=== PATIENT | female | born 1990 | race Caucasian/White ===

== ENCOUNTER → 2016-09-17 | Outpatient (CLI) | payer OTHER ==
[~2016-09-17] MED LIST: BCPILLS PO
[2016-09-21 23:54] LABS: CHLAMYDIA TRACH RNA*** NOT DETECTED (NOT DETECTED); GC (NEIS GONORRHOEAE)RNA** NOT DETECTED (NOT DETECTED)
== END ==
LOC: C.LABSPEC 17:54
PROVIDERS: ATTEND Physician Assistant
DX: Z01.419 Encounter for gynecological examination (general) (routine) without abnormal findings (principal)

== ENCOUNTER → 2016-09-17 | Outpatient (CLI) | payer OTHER | END | disposition home or self-care (01) | LOC: C.PAPS 09:34 | PROVIDERS: ATTEND Physician Assistant | DX: Z12.4 Encounter for screening for malignant neoplasm of cervix (principal); R87.616 Satisfactory cervical smear but lacking transformation zone; Z87.42 Personal history of other diseases of the female genital tract ==

== ENCOUNTER 2020-05-27 04:58 | Inpatient (IN) ==
--- NOTE | 2020-05-25 14:02 | History & Physical Report ---
Date of Service May 25, 2020 Assessment & Plan (1) Previous delivery affecting , antepartum: Admission and Anticipated Discharge Date Admission Date: IUP at 39+ weeks in multiparous female with history of demise at 3 weeks of age with omphalocele and had a repeat with second . She presents for repeat but declines tubal at this time. the FOB is new and they are hoping to have one more child together. The procedure and it's risks were reviewed at length with the patient and her and all of their questions were answered to their satisfaction and are ready to proceed. History of Present Illness Primary Care Provider: NO PCP Patient is a 29 yo white female who presents at 39 weeks gestation for repeat section. First was done for infant with omphalocele that at 3 weeks of age. Second section was done as scheduled repeat. otherwise has been uncomplicated. GBS (+) First section she had no issues with the spinal except for mild nausea. Second section, she had SOB after the first attempt at the spinal was not effective. She had a second spinal attempt after which she had difficulty knowing she was breathing, however, she did not have a high spinal requiring respiratory assistance. Allergies Allergy/AdvReac Type Severity Reaction Status Date / Time telithromycin Allergy Intermediate HIVES Verified 05/22/20 09:43 Home Medications Medication Instructions Recorded Confirmed Type prenat.vits,misti,[id number] 1 tab PO QAM 10/16/19 05/22/20 History breast pump #1 ea 03/21/20 05/22/20 Rx calcium carbonate [Tums] 200 mg PO DAILY PRN 03/23/20 05/22/20 History Patient History Medical History History of anesthesia reaction per pt in 2013 with last she was "very numb and felt like I couldn't breathe with last spinal" History of cervical cancer per pt she was diagnosed 2018--sx History of gout Nausea and vomiting after administration of anesthetic agent Surgical History H/O section x2--2011, 2013 History of hysteroscopy for cervical cancer removal History of tonsillectomy and adenoidectomy History of tooth extraction Hx of LASIK S/P thyroid biopsy benign [place] teeth extracted Family History Grandfather (Maternal) Clotting disorder Kidney disease Grandfather (Paternal) Clotting disorder Grandmother (Maternal) Clotting disorder Mother Endometriosis Aunt Multiple sclerosis Daughter Omphalocele Other No family history of adverse response to anesthesia Social History Smoking Status: Never smoker Second Hand Exposure: No; Hx Alcohol Use: No (none during ) Hx Substance Use: No Preferred Language: Liberian Communication Ability: Effective Roller Picker Required: No Beliefs That Will Affect Care: None marital status: Single marital status details: Bhavik (29) [phone] Current Living Situation: Significant Other Current Living Situation Comment: lives with fiancee and daughter, 3 dogs. current occupational status: employed current occupation: buying agent Feels Safe at Home: Yes Assistive Devices: None Review of Systems All systems reviewed & are unremarkable except as noted in HPI & below Physical Exam Constitutional: WD/WN, vitals as above Respiratory: normal respiratory effort, lungs clear to auscultation Cardiovascular: RRR, no murmur, no edema Gastrointestinal (Abdomen): normal bowel sounds, soft, nontender, no hepatosplenomegaly Psychiatric: A+Ox3, euthymic affect Genitourinary: OB Exam Abdomen: + fundal height (39), + heart tones (145), + vertex and + estimated weight (7-8 pounds) cervix exam declined Coding Level of Care Code None Diagnoses Previous delivery affecting , antepartum O34.219
[2020-05-27] MEDS ORDERED: LACTATED RINGER'S 1,000 ML IV SCH ×2 (05:15→09:15)
[2020-05-27] MEDS ORDERED: CITRIC ACID/SODIUM CITRATE 15 ML UDC PO SCH (06:00)
[2020-05-27 06:02] LABS: Basophils # (auto) 0.02 K/uL (0-0.2); Basophils % (auto) 0.2 %; Eosinophils # (auto) 0.17 K/uL (0-0.5); Eosinophils % (auto) 1.5 %; Hematocrit (blood only) 33.3 % (37-47); Immature Granulocytes # (auto) 0.03 K/uL (0.00-0.02); Immature Granulocytes % (auto) 0.3 %; Lymphocytes # (auto) 2.73 K/uL (1.2-3.4); Lymphocytes % (auto) 24.6 %; Mean Corpuscular Hemoglobin 29.3 pg (25-34); Mean Corpuscular Volume 88.8 fL (80-100); Mean Platelet Volume 10.9 fL (7.4-10.4); Monocytes # (auto) 1.21 K/uL (0.11-0.59); Monocytes % (auto) 10.9 %; Neutrophils # (auto) 6.95 K/uL (1.4-6.5); Neutrophils % (auto) 62.5 %; Platelet Count 149 K/uL (130-400); RDW Coefficient of Variation 14.2 % (11.5-14.5); RDW Standard Deviation 46.5 fL (36.4-46.3); Red Blood Count 3.75 M/uL (4.2-5.4); White Blood Count 11.11 K/uL (4.8-10.8)
[2020-05-27] MEDS ORDERED: ERYTHROMYCIN OP OINT 1 GM PKT ONE (07:17)
--- NOTE | 2020-05-27 07:42 | History & Physical Bridge Note ---
Date of Service May 27, 2020 History & Physical Bridge Note I have examined the patient, reviewed the History & Physical and in the interval since the performance of the History & Physical I have noted the following changes of clinical significance: no changes noted
--- NOTE | 2020-05-27 07:55 | Anesthesiology Consultation ---
Date of Service May 27, 2020 Assessment & Plan (1) Encounter for pre-operative examination: Chart Review Chart Review: Acceptable Risk for Surgery and Patient NOT seen in Pre Admission Testing Consults Requested none ASA ASA2 Proposed Anesthesia Anesthesia Type: Spinal Risk / Benefits Reviewed With: PT / POA / Parent / Guardian, Accepts Plan and Informed Consent Obtained History Surgery Operation Date: 05/27/20 07:30 Proposed Procedures p Section in LD - Pricila Ward MD, FACOG Height/Weight Height: 5 ft 4 in Weight: 98.792 kg Allergies Allergy/AdvReac Type Severity Reaction Status Date / Time telithromycin Allergy Intermediate HIVES Verified 05/27/20 05:25 Medications Home Medications Medication Instructions Recorded Confirmed Last Taken prenat.vits,misti,[id number] 1 tab PO QAM 10/16/19 05/27/20 05/26/20 08:00 breast pump #1 ea 03/21/20 05/22/20 Unknown calcium carbonate [Tums] 200 mg PO DAILY PRN 03/23/20 05/27/20 05/26/20 08:00 NPO Date Last Intake of Fluids: 05/26/20 Time Last Intake of Fluids: 23:00 Date Last Intake of Solids: 05/26/20 Time Last Intake of Solids: 19:00 Past Medical History Medical History History of anesthesia reaction per pt in 2013 with last she was "very numb and felt like I couldn't breathe with last spinal" History of cervical cancer per pt she was diagnosed 2018--sx History of gout Nausea and vomiting after administration of anesthetic agent Exercise / Class Metabolic Activity II 4-5 Yardwork/Stairs/Walk up hill Negative for chest pain or shortness of breath. Past Family History Family History Grandfather (Maternal) Clotting disorder Kidney disease Grandfather (Paternal) Clotting disorder Grandmother (Maternal) Clotting disorder Mother Endometriosis Aunt Multiple sclerosis Daughter Omphalocele Other No family history of adverse response to anesthesia Past Surgical History Surgical History H/O section x2--2013 History of hysteroscopy for cervical cancer removal History of tonsillectomy and adenoidectomy History of tooth extraction Hx of LASIK S/P thyroid biopsy benign [place] teeth extracted Past Anesthesia History No Hx of Anesthesia Complications History of PONV History of PONV Social History Smoking Status: Never smoker Do You Dip or Chew Tobacco: No Hx Alcohol Use: Yes alcohol intake frequency: a few times a month Hx Substance Use: No substance use type: does not use Review of Systems Patient denies numbness, tingling or weakness in lower extremities. Patient denies history of abnormal bleeding or bleeding disorder. Patient denies active use of anticoagulants other than low dose aspirin. Physical Exam Vital Signs Last Vital Signs Temp 36.8 C 05/27/20 05:18 Pulse 87 05/27/20 05:18 Resp 18 05/27/20 05:18 BP 126/82 05/27/20 05:18 Constitutional not obese (gravid uterus) ENMT Mouth: no TMJ abnormality and oral opening not small Thyromental Distance: > or= 3.5 Finger Breadths Mallampati Class: II Neck normal visual inspection; neck extension not limited Respiratory normal respiratory effort Auscultation: lungs clear to auscultation bilaterally Cardiovascular Rate/Rhythm: regular rate and regular rhythm Heart Sounds: no murmur Neurologic moves all extremities Motor/Sensory: + sensory deficit (hands b/l) Psychiatric Orientation: alert and oriented x 3 Testing Laboratory Results 05/27/20 05:50 Blood Type A Positive 05/27/20 05:50 Antibody Screen NEGATIVE 05/27/20 05:50
[2020-05-27] MEDS ORDERED: ONDANSETRON INJ 2 MG/ML 2 ML VIAL ONE (08:01)
[2020-05-27] MEDS ORDERED: OXYTOCIN 10 UNITS/ML VIAL ONE (08:01)
[2020-05-27] MEDS ORDERED: fentaNYL citrate 100 MCG/2 ML VIAL ONE (08:02)
[2020-05-27] MEDS ORDERED: MoRPHine SULFATE PF 1 MG/ML 10 ML AMP/VIAL ONE (08:02)
[2020-05-27] MEDS ORDERED: GLYCOPYRROLATE 0.2 MG/ML VIAL ONE (08:34)
[2020-05-27] MEDS ORDERED: ePHEDrine sulfate 50 MG/ML SYR ONE (08:39)
[2020-05-27] MEDS ORDERED: PHENYLEPHRINE 100MCG/ML 5ML SYR ONE (08:39)
[2020-05-27] MEDS ORDERED: SODIUM CHLORIDE 0.9% INJ 10 ML VIAL ONE (08:53)
[2020-05-27] MEDS ORDERED: KETOROLAC 30 MG/ML VIAL ONE (09:03)
[2020-05-27] MEDS ORDERED: MoRPHine SULFATE PF 1 MG/ML 10 ML AMP/VIAL INT SPINAL ONE (09:06)
[2020-05-27] MEDS ORDERED: ePHEDrine sulfate 50 MG/ML AMP IV PRN (09:06)
[2020-05-27] MEDS ORDERED: NALOXONE HCL 0.08 MG in SYRINGE 1.8 ML IV PRN (09:06)
[2020-05-27] MEDS ORDERED: NALOXONE HCL 1 MG in SODIUM CHLORIDE 0.9% 1000ML 1,000 ML IV PRN (09:06)
[2020-05-27] MEDS ORDERED: diphenhydrAMINE 50 MG/ML VIAL IV PRN (09:06)
[2020-05-27] MEDS ORDERED: ONDANSETRON INJ 2 MG/ML 2 ML VIAL IV PRN (09:06)
[2020-05-27] MEDS ORDERED: LACTATED RINGER'S 500 ML IV PRN (09:06)
[2020-05-27] MEDS ORDERED: ACETAMINOPHEN 1000 MG/100 ML IV IV PRN (09:06)
[2020-05-27] MEDS ORDERED: HYDROmorphone INJ 0.5 MG/0.5 ML SYR IV PRN (09:06)
[2020-05-27] MEDS ORDERED: NALOXONE HCL 0.4 MG/1 ML VIAL/CARP IV PRN (09:06)
[2020-05-27] MEDS ORDERED: diphenhydrAMINE 50 MG/ML VIAL ONE (09:12)
[2020-05-27] MEDS ORDERED: SENNA 8.6 MG TAB PO PRN (09:14)
[2020-05-27] MEDS ORDERED: BENZOCAINE 20% AER SPR 82.5 GM CAN EXT PRN (09:14)
[2020-05-27] MEDS ORDERED: MAGNESIUM HYDROXIDE SUSP 30 ML UDC PO PRN (09:14)
[2020-05-27] MEDS ORDERED: SUPERCREAM 0.870% 15 GM JAR EXT PRN (09:14)
[2020-05-27] MEDS ORDERED: HYDROCORTISONE ACETATE 25 MG SUPP PR PRN (09:14)
[2020-05-27] MEDS ORDERED: DIPHTHERIA/TETANUS/PERTUSSIS 0.5 ML SYR/VIAL IM ONE (09:14)
[2020-05-27] MEDS ORDERED: SODIUM CHLORIDE 0.9% 1000ML 1,000 ML IV SCH (09:15)
[2020-05-27] MEDS ORDERED: NO NARCOTICS OR SEDATIVES SCH (09:15)
--- NOTE | 2020-05-27 09:19 | Post Operative Brief Note ---
PG Immediate Post Op with CF Date of Surgery May 27, 2020 Pre & Post Diagnosis Operation Date: 05/27/20 07:30 Pre-Op Diagnosis: Repeat section Post-Op Diagnosis: Repeat section I identified the patient and participated in the time-out.: Yes Procedure Operation Date: 05/27/20 07:30 Actual Procedures p Section in LD live male child at 0836 - Pricila Ward MD, FACOG Surgeon Pricila Ward MD, FACOG Industrial Maintenance Technician Saloni Lauren MD Estimated Blood Loss 500 Findings Consistent with Post-Op Diagnosis Specimens Specimen Description: 1. Placenta, HOLD Drains Mcconnell Catheter
[2020-05-27] MEDS: OXYTOCIN 20 UNITS in LACTATED RINGER'S 1,000 ML IV SCH ×2 (09:42→17:47)
--- NOTE | 2020-05-27 10:06 | Operative Report ---
PG Post Operative Report Pre & Post Diagnosis Operation Date: 05/27/20 07:30 Pre-Op Diagnosis: Repeat section Post-Op Diagnosis: Repeat section I identified the patient and participated in the time-out.: Yes Procedure Operation Date: 05/27/20 07:30 Actual Procedures p Section in LD live male child at 0836 - Pricila Ward MD, FACOG Surgeon Pricila Ward MD, FACOG Ground Crewman Mission Support Saloni Lauren MD Estimated Blood Loss 500 Findings Consistent with Post-Op Diagnosis Specimens none Description of Procedure repeat low transverse section I attest to the content of the Intraoperative Record and any orders documented therein. Any exceptions are noted below.
--- NOTE | 2020-05-27 10:11 | Operative Report ---
PG Post Operative Report Pre & Post Diagnosis Operation Date: 05/27/20 07:30 Pre-Op Diagnosis: Repeat low transverse section prior low transverse section X2 Post-Op Diagnosis: Repeat low transverse section I identified the patient and participated in the time-out.: Yes Procedure Operation Date: 05/27/20 07:30 Actual Procedures low transverse Section in LD live male child at 0836 - Pricila Rob MD, FACOG Surgeon Pricila Ward MD, FACOG Director Global Medical Affairs Saloni Lauren MD Estimated Blood Loss 500 Findings Consistent with Post-Op Diagnosis The uterus was noted to be gravid and consistent with a term in size. Bilateral fallopian tubes and ovaries were grossly normal. The lower uterine segment was noted to be thin but intact. Specimens placenta Drains Mcconnell to straight drainage Anesthesia Type Spinal Complications none Disposition Accompanied Patient To Recovery: Yes Disposition: L&D Indications Patient is a 29-year-old G3 para 2-0-0-1 who presents at 39+ weeks for repeat section. First section was done because the had an omphalocele. That at 3 weeks of age. She had a repeat section with her last delivery without complications. She is now scheduled for repeat section but declines tubal ligation as this is a new partner and they may want to have one more child together. She understands the risk of the procedure and is willing to proceed. Description of Procedure After the patient received adequate subarachnoid block, she was prepped and draped in the usual sterile fashion. A low transverse skin incision was made through her prior scar and carried to the fascia with the same scalpel. The fascial incision was then extended with Alvarenga scissors. The edges were then grasped with Natalia clamps and the underlying rectus muscles bluntly and sharply dissected off of the overlying fascia. The rectus muscles were bluntly divided, and during this process the peritoneum was entered bluntly. The bladder blade was then placed in the lower uterine segment was noted to be thin but intact. The bladder was taken down off the anterior surface of the uterus with Metzenbaum scissors and placed behind the bladder blade. The lower uterine segment was entered with a scalpel and extended transversely. Membranes were ruptured for clear fluid. The was in the vertex presentation and because of scarring in the lower uterine segment, the vacuum was used to bring the vertex gently through the incision accompanied by moderate fundal pressure. After the vertex was delivered the rest of the infant delivered easily. The cord was clamped and cut. The infant was vigorous and moving all 4 limbs and was handed off to Dr. Barlow who was attendance as sales engagement executive. The placenta was then manually removed and the uterus exteriorized and covered a clean lap sponge. The uterus cavity was explored and found to be free of any placental tissue however some retained membranes were removed using a ring forcep. The uterus was then closed in 2 layers with 0 Monocryl suture in a running locking imbricating fashion. Bleeding along the inner midportion of the incision was secured with a [id number] stitch of 0 Monocryl. At this point the incision had excellent hemostasis. The posterior cul-de-sac was irrigated with normal saline,. The uterine incision was then was examined once more found to have excellent hemostasis. Uterus placed back in the abdominal cavity the gutters were explored and were free of any fluid or clot. The fimbriated end of the right fallopian tube was bleeding and this was secured with the Bovie. The uterine incision continued to have excellent hemostasis. The rectus muscle were brought together in the midline with individual stitches of 0 Monocryl. The fascia was then closed in a running fashion with 0 Vicryl. After irrigating the adipose layer the skin edges were reapproximated using a subcuticular stitch of 3-0 Vicryl. Urine was clear at the end of the case. Mother and were doing well upon arrival in labor and delivery. I attest to the content of the Intraoperative Record and any orders documented therein. Any exceptions are noted below. OB Procedure charges OB Charges 57794 C/S
--- NOTE | 2020-05-27 12:04 | Anesthesiology Progress Note ---
Date of Service May 27, 2020 Anesthesia Post Procedure Vital Signs Vital Signs: Temp Pulse Resp BP Pulse Ox 05/27/20 11:24 89 100 05/27/20 11:23 36.9 C 83 113/58 L 05/27/20 11:19 56 L 100 05/27/20 11:14 67 100 05/27/20 11:13 92 H 113/57 L 05/27/20 11:09 89 100 05/27/20 11:04 94 H 100 05/27/20 11:03 97 H 114/70 05/27/20 10:59 67 100 05/27/20 10:54 109 H 100 05/27/20 10:53 109 H 18 111/70 05/27/20 10:49 73 100 05/27/20 10:44 71 100 05/27/20 10:43 80 110/61 05/27/20 10:39 85 100 05/27/20 10:34 100 H 100 05/27/20 10:33 92 H 111/58 L 05/27/20 10:29 89 99 05/27/20 10:24 93 H 99 05/27/20 10:23 18 05/27/20 10:19 79 98 05/27/20 10:14 103 H 97 05/27/20 10:13 18 05/27/20 10:09 81 97 05/27/20 10:03 93 H 18 119/76 100 05/27/20 09:58 70 99 05/27/20 09:53 72 18 100 05/27/20 09:52 85 113/77 05/27/20 09:48 100 H 100 05/27/20 09:43 90 18 123/76 100 05/27/20 09:38 101 H 99 05/27/20 09:33 94 H 16 112/64 99 05/27/20 09:28 97 H 98 05/27/20 09:23 36.5 C 113 H 18 111/75 99 05/27/20 08:23 36.5 C 16 05/27/20 07:46 18 05/27/20 05:18 36.8 C 87 18 126/82 Transfer of Care Handoff Completed per policy Notes Mental Status: alert / awake / arousable and participated in evaluation Nausea / Vomiting: adequately controlled Pain: adequately controlled Airway Patency, RR, SpO2: stable & adequate BP & HR: stable & adequate Hydration State: stable & adequate Neuraxial Anesthesia: was administered and sensory block is resolving Anesthetic Complications: no major complications apparent and Pt Satisfied with anesthetic care
[2020-05-27] MEDS ORDERED: LACTATED RINGER'S 500 ML IV ONE (12:19)
[2020-05-27] MEDS: SIMETHICONE 80 MG CHEW PO SCH ×3 (13:18→20:31)
[2020-05-27] MEDS: KETOROLAC 30 MG/ML VIAL IV PRN ×2 (16:44→23:24)
[2020-05-27] MEDS: DOCUSATE SODIUM 100 MG CAP PO SCH (20:31)
[2020-05-28] MEDS ORDERED: DC INTRASPINAL MORPHINE ONE (03:06)
[2020-05-28] MEDS ORDERED: diphenhydrAMINE 50 MG/ML VIAL IV PRN (03:06)
[2020-05-28] MEDS ORDERED: PROMETHAZINE HCL 25 MG in SODIUM CHLORIDE 0.9% 50 ML IV PRN (03:06)
[2020-05-28] MEDS ORDERED: ONDANSETRON INJ 2 MG/ML 2 ML VIAL IV PRN (03:06)
[2020-05-28] MEDS ORDERED: ZOLPIDEM TARTRATE 5 MG TAB PO PRN (03:06)
[2020-05-28] MEDS ORDERED: MEPERIDINE HCL 50 MG/ML CARP IV PRN (03:06)
[2020-05-28] MEDS ORDERED: KETOROLAC 30 MG/ML VIAL IV PRN (03:06)
[2020-05-28] MEDS: oxyCODONE/ACETAMINOPHEN 5mg/325mg TAB PO PRN ×5 (04:33→20:57)
[2020-05-28] MEDS: IBUPROFEN 600 MG TAB PO PRN ×5 (04:33→20:57)
[2020-05-28 07:27] LABS: Basophils # (auto) 0.02 K/uL (0-0.2); Basophils % (auto) 0.2 %; Eosinophils # (auto) 0.15 K/uL (0-0.5); Eosinophils % (auto) 1.2 %; Hematocrit (blood only) 33.8 % (37-47); Immature Granulocytes # (auto) 0.03 K/uL (0.00-0.02); Immature Granulocytes % (auto) 0.2 %; Lymphocytes # (auto) 2.19 K/uL (1.2-3.4); Lymphocytes % (auto) 16.8 %; Mean Corpuscular Hemoglobin 28.9 pg (25-34); Mean Corpuscular Hgb Conc 32.5 g/dL (32-36); Mean Corpuscular Volume 88.9 fL (80-100); Mean Platelet Volume 11.2 fL (7.4-10.4); Monocytes % (auto) 10.8 %; Neutrophils # (auto) 9.23 K/uL (1.4-6.5); Neutrophils % (auto) 70.8 %; Platelet Count 168 K/uL (130-400); RDW Coefficient of Variation 14.4 % (11.5-14.5); RDW Standard Deviation 46.4 fL (36.4-46.3); White Blood Count 13.02 K/uL (4.8-10.8)
[2020-05-28] MEDS: SIMETHICONE 80 MG CHEW PO SCH ×4 (07:40→20:34)
[2020-05-28] MEDS: PRENATAL VITAMIN 1 TAB PO SCH (07:40)
[2020-05-28] MEDS: DOCUSATE SODIUM 100 MG CAP PO SCH ×2 (07:40→20:35)
[2020-05-28] MEDS: FERROUS SULFATE 325 MG TAB PO SCH (07:40)
--- NOTE | 2020-05-28 07:45 | Obstetrical Progress Note ---
Date of Service May 28, 2020 Assessment & Plan (1) care following delivery: stable, doing well, routine care. , rh pos, ri. Day #:: 1 Subjective Ambulation: ambulating normally Voiding: no voiding problems Passing Gas:: Yes Diet Tolerance:: clear liquids Lochia:: Small Feeding Type:: breast feeding denies pain issues. , baby doing better with latch this am. Physical Exam Constitutional WD/WN, vitals as above Respiratory normal respiratory effort, lungs clear to auscultation Cardiovascular Rate/Rhythm: regular rate and regular rhythm Gastrointestinal (Abdomen) Inspection/Auscultation: abdomen normal to inspection Percussion/Palpation: abdomen soft Fundus firm at u, nt. incision c/d/i Musculoskeletal nt calves no edema Neurologic grossly normal Psychiatric A+Ox3, euthymic affect Results & Data ([facility]) Vital Signs (Past 12 Hours) Vital Signs Temp Pulse Resp BP Pulse Ox 05/28/20 04:10 98.4 F 90 16 117/84 98 05/28/20 02:20 16 98 05/28/20 01:45 16 97 05/28/20 00:30 16 95 05/27/20 23:15 98.6 F 85 16 107/72 98 05/27/20 22:50 16 97 05/27/20 21:30 16 95 05/27/20 20:30 16 98 05/27/20 19:50 98.8 F 84 16 114/80 97
--- NOTE | 2020-05-28 09:48 | Anesthesiology Progress Note ---
Date of Service May 28, 2020 Anesthesia Post Procedure Vital Signs Vital Signs: Temp Pulse Pulse Resp BP BP Pulse Ox 05/28/20 04:10 36.9 C 90 16 117/84 98 05/28/20 02:20 16 98 05/28/20 01:45 16 97 05/28/20 00:30 16 95 05/27/20 23:15 37.0 C 85 16 107/72 98 05/27/20 22:50 16 97 05/27/20 21:30 16 95 05/27/20 20:30 16 98 05/27/20 19:50 37.1 C 84 16 114/80 97 05/27/20 18:43 20 100 05/27/20 17:30 20 98 05/27/20 16:30 20 98 05/27/20 16:20 36.8 C 90 20 109/70 98 05/27/20 15:30 20 100 05/27/20 14:30 20 97 05/27/20 13:33 20 98 05/27/20 12:30 20 97 05/27/20 11:32 36.9 C 89 20 103/66 100 05/27/20 11:24 89 100 05/27/20 11:23 36.9 C 83 113/58 L 05/27/20 11:19 56 L 100 05/27/20 11:14 67 100 05/27/20 11:13 92 H 113/57 L 05/27/20 11:09 89 100 05/27/20 11:04 94 H 100 05/27/20 11:03 97 H 114/70 05/27/20 10:59 67 100 05/27/20 10:54 109 H 100 05/27/20 10:53 109 H 18 111/70 05/27/20 10:49 73 100 05/27/20 10:44 71 100 05/27/20 10:43 80 110/61 05/27/20 10:39 85 100 05/27/20 10:34 100 H 100 05/27/20 10:33 92 H 111/58 L 05/27/20 10:29 89 99 05/27/20 10:24 93 H 99 05/27/20 10:23 18 05/27/20 10:19 79 98 05/27/20 10:14 103 H 97 05/27/20 10:13 18 05/27/20 10:09 81 97 05/27/20 10:03 93 H 18 119/76 100 05/27/20 09:58 70 99 05/27/20 09:53 72 18 100 05/27/20 09:52 85 113/77 Pain Intensity Abdomen: Pain Intensity: 4 Transfer of Care Handoff Completed per policy Notes Mental Status: alert / awake / arousable Patient Amnestic to Procedure: Yes Nausea / Vomiting: adequately controlled Pain: adequately controlled Airway Patency, RR, SpO2: stable & adequate BP & HR: stable & adequate Hydration State: stable & adequate Neuraxial Anesthesia: was administered and sensory block resolved Anesthetic Complications: no major complications apparent and Pt Satisfied with anesthetic care
[2020-05-28] MEDS: diphenhydrAMINE Capsule 25 MG CAP PO PRN ×2 (12:44→20:58)
[2020-05-28] MEDS ORDERED: bisacodyL 5 MG TABEC PO SCH (20:00)
[2020-05-29] MEDS: IBUPROFEN 600 MG TAB PO PRN ×3 (00:52→12:14)
[2020-05-29] MEDS: oxyCODONE/ACETAMINOPHEN 5mg/325mg TAB PO PRN ×3 (00:52→12:14)
--- NOTE | 2020-05-29 05:39 | Obstetrical Progress Note ---
Date of Service May 29, 2020 Assessment & Plan (1) care following delivery: S/p Elective Repeat CS Day 2 - Feels well today. Eating well, voiding well, ambulating well. - Pain well-controlled with ibuprofen 600mg Q4H PRN. - Vital signs reviewed and WNL. - Hemoglobin reviewed. 11.0 --> 11.0 --> 10.9 (today). - Blood Type: A+, antibody negative, GBS positive (s/p Ancef), Rubella Immune, COVID-19 negative - Continue routine post-operative care: encourage ambulation, monitor and control pain with Motrin PRN, continue regular OB diet, monitor lochia - Encourage breast feeding. - Pt counselled on discharge instructions - After discharge, will have 6-wk follow-up with Dr. Rob Admission and Anticipated Discharge Date Admission Date: May 27, 2020 Supervising Physician Co-Signing Physician Notes Patient seen and evaluated and agree with the above findings and plan. Stable for discharge today per patient request Subjective HPI Jessie Kellogg is a 29 y/o female who is POD #2 following elective repeat delivery at 39w1d. She reports feeling well overall this morning. mild abdominal cramping and 2-7/10 pain well managed on analgesics. Voiding well. Tolerating meals overnight without difficulty. Patient has been able to ambulate some. passing gas and no bowel movement. Has persistent lochia with no improvement this morning. Currently and supplementing with formula via bottle. Review of Systems Review of Systems: ROS Denies fever or chills. Denies shortness of breath or cough. Denies chest pain. Denies breast pain. Denies dysuria. Denies leg pain or leg swelling. Denies headache or changes in vision. Physical Exam Physical Exam: PE General: Alert, oriented. No acute distress. Cardiac: Regular rate and rhythm. No murmurs. Respiratory: Clear to auscultation bilaterally a/p, no wheezes/rales/rhonchi. No increased work of breathing. Symmetrical chest rise. No respiratory distress. Abdomen: Soft, nontender, nondistended. Bowel sounds present. Uterus: Uterine fundus firm, palpable at umbilicus. Surgical scar clean and healing well. Lower Extremities: No lower extremity edema or swelling. No deep calf pain. Otoniel's negative bilaterally. Results & Data ([facility]) Vital Signs (Past 12 Hours) Vital Signs Temp Pulse Resp BP Pulse Ox 05/29/20 00:55 36.7 C 78 18 125/85 98 05/28/20 20:30 36.5 C 87 18 118/87 100 Resident Activity Tracking Resident Involvement: Resident Care Provided Care Provided: Adult Hospital Medicine
[2020-05-29 06:13] LABS: Hematocrit (blood only) 33.8 % (37-47); Hemoglobin 10.9 g/dL (12.0-16.0)
[2020-05-29] MEDS: DOCUSATE SODIUM 100 MG CAP PO SCH (08:10)
[2020-05-29] MEDS: SIMETHICONE 80 MG CHEW PO SCH ×2 (08:11→12:14)
[2020-05-29] MEDS: PRENATAL VITAMIN 1 TAB PO SCH (08:11)
[2020-05-29] MEDS: FERROUS SULFATE 325 MG TAB PO SCH (08:11)
[2020-05-29] MEDS ORDERED: bisacodyL 10 MG SUPP PR PRN (09:14)
--- NOTE | 2020-05-29 16:32 | Discharge Summary ---
Date of Service May 29, 2020 Admission HPI Per Admitting Provider Patient is a 29-year-old 3 para 2-0-0-1 white female who presented at 39+ weeks for repeat section. Her first was done because the infant had an omphalocele. The at 3 weeks of age. She had a repeat section for her second electively. She underwent a repeat section on May 27 which was performed without any complications. Admission Exam (Per Admitting) Constitutional WD/WN, vitals as above Respiratory normal respiratory effort, lungs clear to auscultation Cardiovascular RRR, no murmur, no edema Gastrointestinal (Abdomen) normal bowel sounds, soft, nontender, no hepatosplenomegaly Inspection/Auscultation: + abdominal surgical scar (low transverse, well healed ) Psychiatric A+Ox3, euthymic affect Genitourinary OB Exam Abdomen: + fundal height (39 cm), + heart tones (150) and + vertex OB Exam Monitor Tracing: + external FHT monitor used, + external uterine monitor used, + category I and + normal FHT variability Discharge Data Consultations 05/27/20 05:02 Consult Anesthesiology Stat Procedures Performed Operation Date: 05/27/20 07:30 Actual Procedures p Section in LD live male child at 0836 - Pricila Ward MD, [facility] Course (1) care following delivery: She had an uncomplicated postop course. She was tolerating regular diet on her first postop day. Pain was well-controlled with p.o. pain meds as well. She was ambulating and voiding without difficulty. She remained afebrile throughout her hospital course. Hemoglobin on admission was 11.0. On her second postop day hemoglobin was 10.9. Discharge Instructions She was sent home in good condition with prescriptions for Motrin 600 mg p.o. every 6 hours as needed pain and Percocet 1 tablet p.o. every 6 hours as needed pain. She is to call for a temperature of 101 degrees or higher, heavy vaginal bleeding, burning with urination, increased redness or drainage from her incision. She is also to call for calf tenderness or any other concerns. She is to be seen in the office in 6 weeks for a postop and exam. Coding Level of Care Code None Diagnoses care following delivery Z39.2
== END 2020-05-29 13:15 | disposition home or self-care (01) | DRG 788 ==
LOC: 4S1 04:58 → 4S2 11:30